=== PATIENT | male | born 1955 | race African-American/Black ===

== ENCOUNTER 2024-03-22 15:38 | Emergency (ER) | payer MEDICARE, MEDICAID ==
[~2024-03-22] VITALS: Ht 170.2 cm; Wt 90.9 kg
[2024-03-22 15:40] VITALS: BP 151/74; PULSE 86; RESP 18; TEMP 97.9; O2SAT 99
[2024-03-22] MEDS ORDERED: htn PO (15:42)
[2024-03-22] MEDS: KETOROLAC TROMETHAMINE 60 MG/2 ML VIAL IM ONE (20:50)
[2024-03-22] MEDS: TraMADol HCL 50 MG TABLET PO ONE (20:50)
[2024-03-22] MEDS: ACETAMINOPHEN 500 MG TABLET PO ONE (20:51)
[2024-03-22] MEDS ORDERED: ACET-66 PO (21:02)
[2024-03-22] MEDS ORDERED: TRAM50TA5 PO (21:02)
[2024-03-22] MEDS ORDERED: IBUP-1554 PO (21:02)
== END 2024-03-22 21:22 | disposition home or self-care (01) ==
LOC: EMS 15:43
DX: M79.642 Pain in left hand (principal); R51.9 Headache, unspecified; I10 Essential (primary) hypertension
CPT/HCPCS: 99283; 96372; J1885